=== PATIENT | female | born 1960 | race Two or more races ===

== ENCOUNTER 2017-09-30 07:53 | Emergency (ER) | payer OTHER ==
[~2017-09-30] VITALS: Ht 160 cm; Wt 72.6 kg
[2017-09-30 08:00] VITALS: BP 158/65
== END 2017-09-30 08:13 | disposition home or self-care (01) ==
LOC: ER 07:55
DX: H10.9 Unspecified conjunctivitis (principal); H66.92 Otitis media, unspecified, left ear; I10 Essential (primary) hypertension; Z88.0 Allergy status to penicillin
CPT/HCPCS: 99283; A4606; Z7610